=== PATIENT | female | born 1940 | race Two or more races ===

== ENCOUNTER 2018-05-06 13:13 | Outpatient (CLI) | payer MEDICARE, MEDICAID ==
[~2018-05-06] VITALS: Ht 152.4 cm; Wt 72.6 kg
[2018-05-06 13:15] VITALS: BP 121/59
[2018-05-06] MEDS ORDERED: OMEPRAZOLE40 M1 ORAL (13:47)
[2018-05-06] MEDS ORDERED: OXYBUTYNIN CHLOR5 M1 ORAL (13:47)
[2018-05-06] MEDS ORDERED: SIMVASTATIN40 MG ORAL (13:47)
[2018-05-06] MEDS ORDERED: MELATONIN10 M2 ORAL (13:47)
[2018-05-06] MEDS ORDERED: HYDROCHLOROTHIA25 MG ORAL (13:47)
[2018-05-06] MEDS ORDERED: FOSAMAX70 MG ORAL (13:47)
--- NOTE | 2018-05-06 15:19 | GI Initial Consult Note ---
History of Present Illness General Date patient seen: May 06, 2018 Time patient seen: 15:10 Referring physician: JENS Reason for Consultation: Epigastric pain Present Illness HPI This is a pleasant 78-year-old female patient presents today with complaint of epigastric pain, GERD, constipation. Denies any unintentional weight loss or changes in dietary habits. No signs of abuse or neglect. Patient is not fall risk. Home Meds Reported Medications Omeprazole (OMEPRAZOLE) 40 Mg Capsule.dr, 40 MG ORAL DAILY, CAP 05/06/18 Melatonin (MELATONIN) 10 Mg Capsule, 10 MG ORAL BEDTIME PRN for Insomnia, TAB 05/06/18 Simvastatin (ZOCOR) 40 Mg Tablet, 40 MG ORAL BEDTIME, TAB 05/06/18 Alendronate Sodium* (FOSAMAX*) 70 Mg Tablet, 70 MG ORAL ONCE A WEEK, TAB 05/06/18 Oxybutynin Chloride (OXYBUTYNIN CHLORIDE) 5 Mg Tablet, 10 MG ORAL, #30 TAB 0 Refills 05/06/18 Hydrochlorothiazide* (HYDROCHLOROTHIAZIDE*) 25 Mg Tablet, 25 MG ORAL DAILY, TAB 05/06/18 Med list reviewed/reconciled: Yes Allergies: Coded Allergies: No Known Allergies (Unverified , 05/06/18) Patient History History Provided By: Patient, Medical Record H Narrative Hypertension Past surgical history Cholecystectomy Hysterectomy Social History: Reports: other - Drinks occasional coffee; Denies: smoking, alcohol use, drug use Review of Systems All Other Systems: negative except mentioned in HPI Physical Exam Temperature 98.7 Blood pressure 121/39 Pulse 77 96% room air Height 5 0 Weight 160 pounds Sp02 EP Interpretation: reviewed, normal General Appearance: well appearing, no apparent distress, alert Head: normocephalic EENT: PERRL/EOMI, normal ENT inspection Neck: supple Respiratory: normal breath sounds, no respiratory distress Cardiovascular: normal rate Gastrointestinal: normal inspection, non tender, soft, normal bowel sounds, non -distended Rectal: deferred Genitourinary: no CVA tenderness Musculoskeletal: normal inspection, back normal Neurologic: normal inspection, alert, oriented x3, responsive Psychiatric: normal inspection, judgement/insight normal, memory normal Skin: normal inspection, normal color, no rash, warm/dry, palpation normal, well hydrated Lymphatic: normal inspection, no adenopathy GI: Plan Problems: (1) Hypertension (2) Hx of cholecystectomy (3) H/O: hysterectomy (4) Colonoscopy planned Plan EGD/colonoscopy to be scheduled May 17, 2018. - CLD & (Nulytely/Suprep/Movi-Prep) prep instructions given and acknowledged by patient. - NPO @ HI day prior procedure explained. Will follow with additional recs post procedure. Seen with Dr. Sifuentes. Thank you for this patient referral. The patient was seen and examined at bedside and all new and available data was reviewed in the patients chart. I agree with the above findings, impression and plan. (Patient seen earlier today. Signature stamp does not reflect patient encounter time.). - MD Laney Tan AnhJennifer POLICE RECORDS CLERK May 06, 2018 15:19
== END 2018-05-06 13:43 | disposition home or self-care (01) ==
LOC: PAN 13:13
DX: K21.9 Gastro-esophageal reflux disease without esophagitis (principal); K59.00 Constipation, unspecified; I10 Essential (primary) hypertension; Z90.49 Acquired absence of other specified parts of digestive tract; Z90.710 Acquired absence of both cervix and uterus
CPT/HCPCS: 99202

== ENCOUNTER 2018-05-17 07:04 | Day surgery (SDC) | payer MEDICARE, MEDICAID ==
[~2018-05-17] VITALS: Ht 152.4 cm; Wt 70.3 kg
[2018-05-17] VITALS (9 sets, daily range): BP systolic 112–140; BP diastolic 57–82
[~2018-05-17 07:04] MED LIST: FOSAMAX70 MG ORAL; HYDROCHLOROTHIA25 MG ORAL; MELATONIN10 M2 ORAL; OMEPRAZOLE40 M1 ORAL; OXYBUTYNIN CHLOR5 M1 ORAL; SIMVASTATIN40 MG ORAL
[2018-05-17] MEDS ORDERED: CARVEDILOL25 MG ORAL (08:12)
[2018-05-17] MEDS ORDERED: AMLODIPINE BESY10 MG ORAL (08:12)
[2018-05-17] MEDS ORDERED: DICLOFENAC SODI75 MG ORAL (08:12)
--- NOTE | 2018-05-17 09:10 | Short Stay Surgery H&P ---
History of Present Illness History of Present Illness Chief Complaint see recent consult note HPI Jessica Puente is a 78 year old female who was admitted on for Gerd, Constipation Patient History Allergies: Coded Allergies: No Known Allergies (Unverified , 05/06/18) Medication History Scheduled Alendronate Sodium* (Fosamax*), 70 MG ORAL ONCE A WEEK, (Reported) Amlodipine Besylate* (Amlodipine Besylate*), 10 MG ORAL DAILY, (Reported) Carvedilol* (Carvedilol*), 25 MG ORAL EVERY 12 HOURS, (Reported) Diclofenac Sod* (Voltaren*), 75 MG ORAL BID, (Reported) Hydrochlorothiazide* (Hydrochlorothiazide*), 25 MG ORAL DAILY, (Reported) Omeprazole (Omeprazole), 40 MG ORAL DAILY, (Reported) Simvastatin (Zocor), 40 MG ORAL BEDTIME, (Reported) Scheduled PRN Melatonin (Melatonin), 10 MG ORAL BEDTIME PRN for Insomnia, (Reported) Miscellaneous Medications Oxybutynin Chloride (Oxybutynin Chloride), 10 MG ORAL, (Reported) Physical Exam Vital Signs Last Vital Signs Date Time Temp Pulse Resp B/P (MAP) Pulse Ox O2 Delivery O2 Flow Rate FiO2 05/17/18 07:53 Room Air 05/17/18 07:51 97.7 70 20 140/69 98 Plan Attestation Are the patient's medical conditions optimized for surgery? Alfredo Sifuentes MD May 17, 2018 09:10
--- NOTE | 2018-05-17 09:10 | Pre-Procedure Note/Attestation ---
Pre-Procedure Note/Attestation Complete Prior to Procedure Planned Procedure: not applicable Procedure Narrative: esophagogastroduodenoscopy and colonoscopy Indications for Procedure Pre-Operative Diagnosis: anemia Attestation I attest that I discussed the nature of the procedure; its benefits; risks and complications; and alternatives (and the risks and benefits of such alternatives ), prior to the procedure, with the patient (or the patient's legal premium service representative). I attest that, if there was a reasonable possibility of needing a blood transfusion, the patient (or the patient's legal premium service representative) was given the [facility] standardized written summary, pursuant to the Isidro Augustus Blood Safety Act ([place] Health and Safety Code # 1645, as amended). I attest that I re-evaluated the patient just prior to the surgery and that there has been no change in the patient's H&P, except as documented below: Alfredo Sifuentes MD May 17, 2018 09:10
[2018-05-17] MEDS ORDERED: LR 1000ml 1,000 ML IVLG SCH (09:41)
--- NOTE | 2018-05-17 09:41 | Anethesia Preoperative Eval ---
Anesthesia Pre-op PMH/ROS General Date of Evaluation: May 17, 2018 Time of Evaluation: 09:12 Anesthesiologist: Minnie ASA Score: ASA 2 Mallampati Score Class I : Soft palate, uvula, fauces, pillars visible Class II: Soft palate, uvula, fauces visible Class III: Soft palate, base of uvula visible Class IV: Only hard plate visible Mallampati Classification: Class II Surgeon: Maria Diagnosis: abdominal pain Surgical Procedure: EGD Colonoscopy Anesthesia History: none Family History: no anesthesia problems Allergies: Coded Allergies: No Known Allergies (Unverified , 05/06/18) Medications: see eMAR Patient NPO?: Yes Past Medical History Cardiovascular: Reports: HTN Pulmonary: Denies: asthma, COPD, SHANAE, other Gastrointestinal/Genitourinary: Reports: GERD; Denies: CRI, ESRD, other Neurologic/Psychiatric: Denies: dementia, CVA, depression/anxiety, TIA, other Endocrine: Reports: hypothyroidism; Denies: DM, steroids, other HEENT: Reports: cataract (L), cataract (R) - s/p Sx Hematology/Immune: Reports: anemia - mild; Denies: DVT, bleeding disorder, other Musculoskeletal/Integumentary: Reports: OA; Denies: RA, DJD, DDD, edema, other Other: other - overweight PMH Narrative: as above PSxH Narrative: Back Sx cholecystectomy cataracts Anesthesia Pre-op Phys. Exam Physician Exam Last Vital Signs Date Time Temp Pulse Resp B/P (MAP) Pulse Ox O2 Delivery O2 Flow Rate FiO2 05/17/18 07:53 Room Air 05/17/18 07:51 97.7 70 20 140/69 98 Constitutional: NAD Neurologic: CN 2-12 intact Cardiovascular: RRR, no M/R/G Respiratory: CTA Gastrointestinal: S/NT/ND Airway Exam Mallampati Score: Class II MO: limited Neck: stiff ROM: limited Teeth: missing Dentures: no upper, no lower Anesthesia Pre-op A/P Labs see chart Risk Assessment & Plan Assessment: ASA 2 Plan: MAC Status Change Before Surgery: No Pre-Antibiotics Drug: none Sami Hartman MD May 17, 2018 09:41
[2018-05-17] MEDS ORDERED: fentaNYL 100 mcg/2 mL IV PRN (09:45)
--- NOTE | 2018-05-17 09:49 | Endoscopy Procedure Note ---
Endoscopy Procedure Note General Indication for Procedure: abd pain Procedures Performed: EGD, colonoscopy Operative Findings/Diagnosis: esophagitis, 4 colon polyps Specimen: yes Pt Tolerated Procedure Well: Yes Estimated Blood Loss: none Anesthesia Anesthesiologist: emperatriz Anesthesia: MAC Inserted Devices Implant(s) used?: No Quality Quality of Bowel Preparation: Good Did scope reach the cecum?: Yes Was there any complications?: No GI Core Measures 50 yrs or older w/o bx or poly: No 10yrs. F/U not recommended: Yes If not recommended, why?: Above average risk 10 yrs. F/U needed: Yes 18 years or older w/prev. colo: Yes <3yrs. since last colonoscopy: No Alfredo Sifuentes MD May 17, 2018 09:49
--- NOTE | 2018-05-17 09:55 | Immediate Post-Op Evaluation ---
Immediate Post-Op Evalulation Immediate Post-Op Evalulation Procedure: EGD Colonoscopy, polypectomy Date of Evaluation: May 17, 2018 Time of Evaluation: 09:54 IV Fluids: 400 Blood Products: none Estimated Blood Loss: none Urinary Output: none Blood Pressure Systolic: 112 Blood Pressure Diastolic: 57 Pulse Rate: 64 Respiratory Rate: 20 O2 Sat by Pulse Oximetry: 98 Temperature (Fahrenheit): 97.6 Pain Score (1-10): 1 Nausea: No Vomiting: No Complications none Patient Status: reacts, patent, none Hydration Status: adequate Sami Hartman MD May 17, 2018 09:55
--- NOTE | 2018-05-17 11:40 | 48 Hour Post Anesthesia Eval ---
Post Anesthesia Evaluation Procedure: EGD Colonoscopy, polypectomy Date of Evaluation: May 17, 2018 Time of Evaluation: 11:39 Blood Pressure Systolic: 132 0: 68 Pulse Rate: 64 Respiratory Rate: 20 Temperature (Fahrenheit): 97.6 O2 Sat by Pulse Oximetry: 98 Airway: patent Nausea: No Vomiting: No Pain Intensity: 1 Hydration Status: adequate Cardiopulmonary Status: stable Mental Status/LOC: patient returned to baseline Follow-up Care/Observations: n/a Post-Anesthesia Complications: none Follow-up care needed: ready to discharge Sami Hartman MD May 17, 2018 11:40
--- NOTE | 2018-05-17 13:00 | Procedure Note ---
DATE OF PROCEDURE: 05/17/2018 SURGEON: Alfredo Sifuentes M.D. PROCEDURE: Upper endoscopy with biopsy and colonoscopy with biopsy. ANESTHESIA: Sami Hartman M.D. INSTRUMENT: Olympus adult flexible upper endoscope and colonoscope. INDICATION: Abdominal pain of unknown etiology. Chronic GERD. REASON FOR PROCEDURE: The procedure, risks, benefits, and possible consequences, including hemorrhage, aspiration, perforation and infection, and alternative treatments, were explained to the patient/legal guardian by Dr. Alfredo Sifuentes and the patient/legal guardian understood and accepted these risks. PROCEDURE IN DETAIL: After informed consent was obtained and the patient was adequately sedated, Olympus upper endoscope was advanced from the mouth into the second portion of duodenum and retroflexion was performed in the stomach. The patient had evidence of 5 cm hiatal hernia. The patient had evidence of distal esophageal ulceration and distal esophagitis, status post biopsy. In the stomach, there was diffuse gastritis. Random biopsy from antrum was obtained to rule out H. pylori infection. At this time, the upper endoscope was retrieved and the patient was turned over for colonoscopy. First, rectal exam was performed, which was normal. Then, the scope was advanced from rectum into the cecum documented by appendix orifice, ileocecal valve, and right upper quadrant palpation. Quality of prep was good. The patient had three polyps in the ascending colon and one in descending colon. The three polyps in the ascending colon, two of them were removed with the cold snare polypectomy and one with cold biopsy technique. The one in the descending was very small and removed with the cold biopsy forceps technique. The patient had evidence of moderate diverticulosis in the sigmoid colon. There was evidence of internal hemorrhoids and retroflexion in the rectum. SUMMARY OF FINDINGS: 1. A 5 cm hiatal hernia. 2. Distal esophageal ulceration and esophagitis. 3. Gastritis, status post biopsy to rule out H. pylori infection. 4. Four colonic polyps removed, see above for details. 5. Diverticulosis. 6. Internal hemorrhoids. RECOMMENDATIONS: 1. Follow up biopsy results and treat accordingly. 2. We will start the patient on PPI. 3. Given four polyps, we will recommend repeat colonoscopy in three years. I want to thank , for this kind referral. Alfredo Sifuentes M.D. DR: TRISTAN JOB#: [id number] CC:
--- NOTE | 2018-05-18 12:46 | Cardiology Report ---
APPROVED REPORT EKG Measurement Heart [id number] OR [id number] [id number] Normal sinus rhythm Normal ECG
== END 2018-05-17 11:05 | disposition home or self-care (01) ==
LOC: GAS 07:04
DX: K29.50 Unspecified chronic gastritis without bleeding (principal); K44.9 Diaphragmatic hernia without obstruction or gangrene; K22.10 Ulcer of esophagus without bleeding; K20.9 Esophagitis, unspecified; D12.2 Benign neoplasm of ascending colon; K63.5 Polyp of colon; K64.8 Other hemorrhoids; K57.30 Diverticulosis of large intestine without perforation or abscess without bleeding; I10 Essential (primary) hypertension; E03.9 Hypothyroidism, unspecified; D64.9 Anemia, unspecified; M19.90 Unspecified osteoarthritis, unspecified site; E66.3 Overweight; Z90.49 Acquired absence of other specified parts of digestive tract
CPT/HCPCS: 93005; 94003; 94150

== ENCOUNTER 2018-05-31 14:27 | Outpatient (CLI) | payer MEDICARE, MEDICAID ==
[~2018-05-31 14:27] MED LIST changes: +AMLODIPINE BESY10 MG ORAL; +CARVEDILOL25 MG ORAL; +DICLOFENAC SODI75 MG ORAL
--- NOTE | 2018-05-31 15:03 | GI Progress Note ---
Assessment/Plan Problems: (1) Esophagitis ICD Codes: K20.9 - Esophagitis, unspecified SNOMED: 44086034 (2) Gastritis ICD Codes: K29.70 - Gastritis, unspecified, without bleeding SNOMED: 4398151 (3) GERD (gastroesophageal reflux disease) ICD Codes: K21.9 - Gastro-esophageal reflux disease without esophagitis SNOMED: 408086564 (4) Abdominal pain ICD Codes: R10.9 - Unspecified abdominal pain SNOMED: 75178297 (5) Constipation ICD Codes: K59.00 - Constipation, unspecified SNOMED: 41984895 (6) Hx of cholecystectomy ICD Codes: Z90.49 - Acquired absence of other specified parts of digestive tract SNOMED: 76700022, 908738277 (7) H/O: hysterectomy ICD Codes: Z90.710 - Acquired absence of both cervix and uterus SNOMED: 921944488, 656409763 Status: stable Status Narrative Seen with Dr. Sifuentes. Assessment/Plan SUMMARY OF FINDINGS: 1. A 5 cm hiatal hernia. 2. Distal esophageal ulceration and esophagitis. 3. Gastritis, status post biopsy to rule out H. pylori infection. 4. Four colonic polyps removed, see above for details. 5. Diverticulosis. 6. Internal hemorrhoids. RECOMMENDATIONS: 1. Follow up biopsy results and treat accordingly. Negative for H. pylori 2. Continue on PPI daily - Return to clinic in 3 months. 3. Given four polyps, we will recommend repeat colonoscopy in three years. Subjective Subjective EGD and colonoscopy review Abdominal pain GERD Constipation Objective Temperature 98.3 Blood pressure 120/59 Pulse is 73 94% room air General Appearance: WD/WN, no apparent distress, alert Cardiovascular: normal rate Respiratory/Chest: normal breath sounds, no respiratory distress Abdominal Exam: normal bowel sounds, non tender, soft Extremities: normal range of motion, non-tender Leann Davison NP May 31, 2018 15:03
[2018-05-31 15:54] VITALS: BP 120/59
== END 2018-05-31 14:57 | disposition home or self-care (01) ==
LOC: PAN 14:27
DX: K20.9 Esophagitis, unspecified (principal); K29.70 Gastritis, unspecified, without bleeding; K21.9 Gastro-esophageal reflux disease without esophagitis; K59.00 Constipation, unspecified; Z90.49 Acquired absence of other specified parts of digestive tract; Z90.710 Acquired absence of both cervix and uterus; K44.9 Diaphragmatic hernia without obstruction or gangrene; K22.10 Ulcer of esophagus without bleeding; K57.90 Diverticulosis of intestine, part unspecified, without perforation or abscess without bleeding; K64.8 Other hemorrhoids
CPT/HCPCS: G0463